=== PATIENT | male | born 1985 | race African-American/Black ===

== ENCOUNTER 2017-01-23 18:15 | Emergency (ER) | payer SELFPAY ==
[2017-01-23] MEDS ORDERED: LACTULOSE SYRUP 20 GM/30 ML UDCUP PO ONE (19:02)
[2017-01-23] MEDS ORDERED: NORMAL SALINE 1000 ML 1,000 ML IV ONE (19:02)
--- NOTE | 2017-01-23 19:19 | ER Document Report ---
ED General - General Chief Complaint: Vomiting Stated Complaint: CHEST PAIN ,VOMITING Notes: Patient is a 31-year-old male without past medical history who presents with 2 weeks of intermittent urinary incontinence, dysuria, polyuria and polydipsia, and intermittent chest pain. Patient states that he came in today as his mother continue to "negative him" regarding receiving medical care for these concerns. He denies any history of similar symptoms in the past. He has not seen a primary care physician regarding today's concerns. He denies any acute back injury. No urinary retention, fever, weakness, numbness, difficulty with ambulation. He has not had any shortness of breath or syncope. No prior history of diabetes or serious back injury although he does have a history of chronic back pain. Nothing improves or worsens his symptoms. States that they have been worsening since onset TRAVEL OUTSIDE OF THE [place] IN LAST 30 DAYS: No - Related Data Allergies/Adverse Reactions: No Known Allergies Allergy (Verified 03/26/14 08:31) Past Medical History - General Information source: Patient - Social History Smoking Status: Never Smoker Frequency of alcohol use: None Drug Abuse: None Lives with: Family Family History: Reviewed & Not Pertinent Renal/ Medical History: Denies: Hx Peritoneal Dialysis Surgical Hx: Negative Review of Systems - Review of Systems Notes: Constitutional: Negative for fever. HENT: Negative for sore throat. Eyes: Negative for visual changes. Cardiovascular: Positive for chest pain. Respiratory: Negative for shortness of breath. Gastrointestinal: Negative for abdominal pain, vomiting or diarrhea. Genitourinary: Positive for urinary frequency and dysuria Musculoskeletal: Negative for back pain. Skin: Negative for rash. Neurological: Negative for headaches, weakness or numbness. 10 point ROS negative except as marked above and in HPI. Physical Exam - Vital signs Vitals: Temp Pulse Resp BP Pulse Ox 98.6 F 108 H 18 134/88 H 98 01/23/17 18:17 01/23/17 18:17 01/23/17 18:17 01/23/17 18:17 01/23/17 18:17 Interpretation: Tachycardic Notes: PHYSICAL EXAMINATION: GENERAL: Well-appearing, well-nourished and in no acute distress. HEAD: Atraumatic, normocephalic. EYES: Pupils equal round and reactive to light, extraocular movements intact, sclera anicteric, conjunctiva are normal. ENT: nares patent, oropharynx clear without exudates. Dry mucous membranes. NECK: Normal range of motion, supple without lymphadenopathy LUNGS: Breath sounds clear to auscultation bilaterally and equal. No wheezes rales or rhonchi. HEART: Regular tachycardia without murmurs ABDOMEN: Soft, nontender, normoactive bowel sounds. No guarding, no rebound. No masses appreciated. Rectal: Tone present. No blood. EXTREMITIES: Normal range of motion, no pitting or edema. No cyanosis. NEUROLOGICAL: No focal neurological deficits. Moves all extremities spontaneously and on command. PSYCH: Normal mood, normal affect. SKIN: Warm, Dry, normal turgor, no rashes or lesions noted. Course - Re-evaluation Re-evalutation: 01/23/17 19:08 Patient presents with a multitude of complaints. 1.) Chest pain:Presentation of chest pain in an otherwise well appearing patient. Low clinical suspicion for ACS given clinical history, exam, EKG without ST elevations or depressions, and negative initial troponin. HEART score less than or equal to 3. Patient has had intermittent chest pain for several seconds at a time for the past several months and I do not believe serial troponins are indicated. PE also seems unlikely given clinical history, absence of dyspnea. Patient was mildly tachycardic at time of arrival. CXR without evidence of pneumothorax or pneumonia. No widened mediastinum. Aortic dissection also seems unlikely given history, symmetric pulses, CXR, and vitals. 2.) Urinary incontinence and dysuria: Patient states that intermittently without urge he will lose control of his bladder. Testicular exam and penile exam are unremarkable without tenderness or lesions. A rectal exam shows no prostatic hypertrophy, no fecal retention. He does have good rectal tone. He does have history of chronic back pain although I doubt cauda equina syndrome or an acute cord compression syndrome as he does have 2+ patellar reflexes bilaterally, 5 out of 5 strength both distal and proximal and the bilateral lower extremities is able to walk on heels and toes without difficulty. Differential considerations include severe constipation causing intermittent leakage of urine, sexual transmitted infection, acute prostatitis, or urinary tract infection. Will obtain labs, urinalysis and reassess 3.) Severe constipation: Patient has not had a bowel movement in over a week. No history of bowel obstruction and he does not have any symptoms to suggest this diagnosis. This may be related to urinary incontinence. Will obtain a KUB and reassess 01/23/17 20:12 Laboratory demonstrate hyperglycemia without evidence of diabetic ketoacidosis or HHS. Will provide additional fluids, insulin, metformin, and check a venous blood gas. Urinalysis unremarkable and overall I suspect that his constipation , dysuria, and urinary frequency with associated incontinence are all likely related to his new onset diabetes. Hemoglobin A1c is 11. He will be started on metformin and glipizide and instructed that he will need close outpatient follow-up. At this time will discharge with return precautions and follow-up recommendations. Verbal discharge instructions given a the bedside and opportunity for questions given. Medication warnings reviewed. Patient is in agreement with this plan and has verbalized understanding of return precautions and the need for primary care follow-up in the next 24-72 hours. - Vital Signs Vital signs: Temp Pulse Resp BP Pulse Ox 98.6 F 108 H 18 134/88 H 98 01/23/17 18:17 01/23/17 18:17 01/23/17 18:17 01/23/17 18:17 01/23/17 18:17 - Laboratory Result Diagrams: 01/23/17 18:42 01/23/17 18:42 Laboratory results interpreted by me: 01/23/17 01/23/17 01/23/17 18:42 18:42 18:42 RBC 5.79 H MCH 26.6 L Plt Count 67 L Sodium 135.6 L Chloride 97 L Carbon Dioxide 20 L Glucose 591 H* Hemoglobin A1c % 11.8 H Urine Glucose (UA) Urine Ketones 01/23/17 19:21 RBC MCH Plt Count Sodium Chloride Carbon Dioxide Glucose Hemoglobin A1c % Urine Glucose (UA) >=500 H Urine Ketones 80 H Discharge - Discharge Clinical Impression: New onset type 2 diabetes mellitus, Urinary frequency Condition: Good Disposition: HOME, SELF-CARE Additional Instructions: You need to followup urgently with your primary care doctor as your blood sugars were dangerously high today. You did not have any evidence of a dangerous condition associated with these blood sugars at this time. However, it is very important that you get your blood sugars under control. Your being started on 2 medications to help control your blood sugar. Please take all of your medications exactly as directed. You should avoid foods that are high in carbohydrates and sugary foods. Losing weight will also help to better control your blood sugars. Please return to emergency department immediately if you develop weakness, persistent vomiting, confusion, or any other symptoms that are concerning to you. Prescriptions: Glipizide 5 mg PO DAILY #30 tablet Metformin HCl 500 mg PO BID #60 tablet
[2017-01-23 19:26] LABS: ANION GAP 19 (5-19); BLOOD UREA NITROGEN 12 mg/dL (7-20); CALCIUM 9.4 mg/dL (8.4-10.2); CARBON DIOXIDE 20 mmol/L (22-30); CHLORIDE 97 mmol/L (98-107); CREATININE RESULT 0.97 mg/dL (0.52-1.25); POTASSIUM 4.7 mmol/L (3.6-5.0); SODIUM 135.6 mmol/L (137-145)
[2017-01-23 19:40] LABS: ABSOLUTE EOSINOPHILS # (AUTO) 0.1 10^3/uL (0.0-0.6); ABSOLUTE LYMPHOCYTES (AUTO) 1.5 10^3/uL (0.5-4.7); ABSOLUTE MONOCYTES (AUTO) 0.4 10^3/uL (0.1-1.4); BASOPHILS % (AUTO) 0.6 % (0-2); EOSINOPHILS % (AUTO) 1.3 % (0-6); GLUCOSE 591 mg/dL (75-110); HEMATOCRIT 46.3 % (37.9-51.0); HEMOGLOBIN 15.4 g/dL (13.5-17.0); HGB HCT DIFFERENCE -0.1; MEAN CORPUSCULAR HEMOGLOBIN 26.6 pg (27.0-33.4); MEAN CORPUSCULAR HGB CONC 33.2 g/dL (32.0-36.0); MEAN CORPUSCULAR VOLUME 80 fl (80-97); MONOCYTES % (AUTO) 7.2 % (3-13); RED BLOOD COUNT 5.79 10^6/uL (4.35-5.55); RED CELL DISTRIBUTION WIDTH 13.7 % (11.5-14.0); SEGMENTED NEUTROPHILS % (AUTO) 60.9 % (42-78)
[2017-01-23 19:46] LABS: APPEARANCE,URINE CLEAR; BILIRUBIN,URINE NEGATIVE (NEGATIVE); GLUCOSE, URINE >=500 mg/dL (NEGATIVE); KETONES,URINE 80 mg/dL (NEGATIVE); LEUKOCYTE ESTERASE,URINE NEGATIVE (NEGATIVE); NITRITE,URINE NEGATIVE (NEGATIVE); PROTEIN,URINE NEGATIVE (NEGATIVE); UROBILINOGEN,URINE NEGATIVE mg/dL (<2.0)
--- NOTE | 2017-01-23 19:47 | EKG REPORT ---
SEVERITY:- OTHERWISE NORMAL ECG - SINUS TACHYCARDIA : Confirmed by: Alex Stubbs MD 23-Jan-2017 19:47:00
[2017-01-23] MEDS ORDERED: RINGERS SOLUTION,LACTATED 1,000 ML IV ONE (20:09)
[2017-01-23] MEDS ORDERED: INSULIN REG, HUMAN 100 UNIT/ML 3 ML VIAL (PYX) IV ONE (20:09)
[2017-01-23] MEDS ORDERED: METFORMIN HCL 500 MG TABLET PO ONE (20:11)
[2017-01-23 21:12] LABS: CHLAM PCR NOT DETECTED (NOT DETECT)
[2017-01-23 21:13] LABS: VENOUS BLOOD BASE EXCESS -7.6 mmol/L; VENOUS BLOOD HCO3 17.6 mmol/L (20-32); VENOUS BLOOD PCO2 35.4 mmHg (35-63); VENOUS BLOOD PH 7.32 (7.30-7.42)
[2017-01-23] MEDS ORDERED: GLIPIZIDE 5 MG TABLET PO ONE (21:14)
[2017-01-23 21:58] VITALS: BP 128/83
== END 2017-01-23 21:58 | disposition home or self-care (01) ==
LOC: ER 18:15
DX: E11.9 Type 2 diabetes mellitus without complications (principal); K59.00 Constipation, unspecified; R07.9 Chest pain, unspecified; R35.0 Frequency of micturition; R30.0 Dysuria; R32 Unspecified urinary incontinence
CPT/HCPCS: 93005; 99285; 96361; 96365; 36415; 82962; 85025; 80048; 81001; 84484; 83036; 87491; 87591; 82803; 71010; 74000; 93010; J1815; J7030; J7120

== ENCOUNTER 2017-02-08 18:55 | Emergency (ER) | payer SELFPAY ==
[2017-02-08] MEDS ORDERED: HYDROCODONE/ACETAMINOPHEN 5-325 MG TABLET PO ONE (20:30)
[2017-02-08] MEDS ORDERED: CEPHALEXIN 500 MG CAPSULE PO ONE (20:31)
[2017-02-08] MEDS ORDERED: SULFAMETHOXAZOLE/TRIMETHOPRIM 800-160 MG TABLET PO ONE (20:31)
[2017-02-08] MEDS ORDERED: LIDOCAINE 1% INJ (10 MG/ML) 10 ML MDV INJ ONE (20:31)
--- NOTE | 2017-02-08 20:34 | ER Document Report ---
ED Skin Rash/Insect Bite/Abscs - General Chief Complaint: Abscess Stated Complaint: POSSIBLE ABSCESS ON BACK Information source: Patient TRAVEL OUTSIDE OF THE [place] IN LAST 30 DAYS: No - HPI Patient complains to provider of: Tender/swollen area Notes: Patient denies with a swollen tender area just above his gluteal cleft for the last few days. Patient has a history of an abscess to his leg, but denies any prior pilonidal abscess. He denies any fevers. He states he vomited once yesterday, but has had no vomiting since. He denies any abdominal pain. He denies any difficulty having bowel movements. He denies any other rashes. No chest pain and difficulty breathing. He has no other complaints. The pain is worse with touching the area or sitting down, nothing seems to make it better. - Related Data Allergies/Adverse Reactions: No Known Allergies Allergy (Verified 03/26/14 08:31) Past Medical History - Social History Smoking Status: Unknown if Ever Smoked Family History: Reviewed & Not Pertinent Patient has suicidal ideation: No Patient has homicidal ideation: No Renal/ Medical History: Denies: Hx Peritoneal Dialysis Review of Systems - Review of Systems -: Yes All other systems reviewed and negative Physical Exam - Vital signs Vitals: Temp Pulse Resp BP Pulse Ox 99.2 F 116 H 19 119/70 98 02/08/17 18:58 02/08/17 18:58 02/08/17 18:58 02/08/17 18:58 02/08/17 18:58 - Notes Notes: GENERAL: alert, cooperative, nontoxic, no distress. HEAD: normocephalic, atraumatic EYES: conjunctiva pink without discharge, no external redness or swelling. EARS: no external swelling, no external redness NOSE: atraumatic, no external swelling MOUTH/THROAT: mucous membranes moist and pink, posterior pharynx without erythema, swelling, exudate. No trismus or drooling. NECK: soft, supple, full range of motion, no meningismus. CHEST: no distress, lungs clear and equal throughout. No wheezing, rales, rhonchi. CARDIAC: regular rate and rhythm, no murmur, normal capillary refill, normal pulses. No peripheral edema noted. ABDOMEN: Soft, nontender. BACK: full range of motion, no CVA tenderness. EXTREMITIES: full range of motion of all extremities. No redness, no swelling. NEURO: alert and oriented x 3, no focal deficits, full range of motion of all extremities. PYSCH: appropriate mood, affect. Patient is cooperative. SKIN: pink, warm, dry, no rash. Patient noted to have a large indurated abscess to the pilonidal area as well as the superior aspect of the gluteal cleft. Some mild fluctuance within the gluteal cleft. There is no significant cellulitis. There is no rectal or perirectal abscess identified. This area is tender to palpation. Course - Re-evaluation Re-evalutation: 02/08/17 21:02 Patient is nontoxic. Stable vitals. Patient has a pilonidal abscess. This was opened and drained in the emergency department. The patient states he is feeling significantly better after having this done. He was dosed with pain medication as well as Bactrim and Keflex here in the ED and will be discharged home with prescriptions for pain meds as well as Bactrim and Keflex. He was instructed to follow-up in 2 days for reevaluation. He is instructed to change dressing tomorrow and start applying warm compresses or warm soaks. He is instructed to follow up sooner if he develops increasing pain, fever, increased redness, or any further concerns. The patient's emergency department workup and current diagnosis were explained to the patient and or family. Follow-up instructions were provided. Medications if prescribed were discussed. Instructions for when to return to the emergency department including specific worrisome symptoms were discussed with the patient and/or family. - Vital Signs Vital signs: Temp Pulse Resp BP Pulse Ox 99.2 F 116 H 19 119/70 98 02/08/17 18:58 02/08/17 18:58 02/08/17 18:58 02/08/17 18:58 02/08/17 18:58 Procedures - Incision and Drainage pilonidal abscess Type: Simple Anesthetic type: 1% Lidocaine mL's of anesthetic: 10 Blade size: 11 I&D procedure: Shurclens applied Incision Method: Incision made by scalpel Amount/type of drainage: large amount of purulent and bloody drainage. Notes: 02/08/17 21:03 Suction was used. The wound was broken up with hemostats. Wound was irrigated with normal saline. Sterile dressing was applied. The patient tolerated the procedure well with immediate palpitations. He states he started significantly better. Discharge - Discharge Clinical Impression: Pilonidal abscess Condition: Stable Disposition: HOME, SELF-CARE Instructions: Abscess ([facility]), Post Incision and Drainage, Oral Narcotic Medication ([facility]) Additional Instructions: Take medications as prescribed. Apply warm compresses or warm soaks to sore area. Follow-up in 2 days for reevaluation. Follow-up sooner for increased pain, fever, redness, or any further concerns. The medication you were prescribed today may cause drowsiness. Do not drive or operate heavy machinery while taking this medication. Prescriptions: Cephalexin [Cephalexin 500 MG Capsule] 1 cap PO QID #40 cap Hydrocodone/Acetaminophen [[place] 5-325 mg Tablet] 1 tab PO Q4 PRN #12 tablet PRN Reason: Sulfamethoxazole/Trimethoprim [Bactrim Ds Tablet] 1 each PO BID #20 tablet Referrals: PARADISE WRIGHT MD [BRENDA LAKHANI] - Follow up as needed
[2017-02-08] MEDS ORDERED: LIDOCAINE 1% INJ-PF (10 MG/ML) 30 ML SDV ONE (20:44)
[2017-02-08 21:27] VITALS: BP 100/58
== END 2017-02-08 21:26 | disposition home or self-care (01) ==
LOC: ER 18:55
PROC: 0H98XZZ Drainage of Buttock Skin, External Approach (ICD-10-PCS; principal; 2017-02-08)
DX: L02.212 Cutaneous abscess of back [any part, except buttock and flank] (principal); L05.01 Pilonidal cyst with abscess
CPT/HCPCS: 99283